=== PATIENT | female | born 1990 | race Caucasian/White ===

== ENCOUNTER 2021-06-19 10:41 | Emergency (ER) | payer BC ==
--- NOTE | 2021-06-19 12:50 | EDM.PDOC ---
ED HPI GENERAL MEDICAL PROBLEM - General Chief Complaint: Respiratory Problem Stated Complaint: COVID POS Time Seen by Provider: 06/19/21 10:44 Source of Information: Reports: Patient History Limitations: Reports: No Limitations - History of Present Illness INITIAL COMMENTS - FREE TEXT/NARRATIVE: 30-year-old female no past medical history presents with hypoxic home pulse oximeter reading last night in the setting of known Covid infection. Patient notes that she was diagnosed 9 days ago and has been symptomatic for 10 days. She is been following up with the [facility]. She was feeling much better a couple of days ago but yesterday noted return of body aches, fever, headaches, shortness of breath. Shortness of breath got worse at night when she was lying flat and she had an episode of her pulse oximeter reading 88%. This morning she woke up and it was 92%. She currently is feeling much better but wanted to rule out pneumonia. neck Pain Score (Numeric/FACES): 3 - Related Data Allergies Allergy/AdvReac Type Severity Reaction Status Date / Time Latex, Natural Rubber Allergy Rash Verified 06/19/21 12:16 Past Medical History Psychiatric History: Reports: Anxiety - Infectious Disease History Infectious Disease History: Reports: None Social & Family History - Family History Family Medical History: No Pertinent Family History - Tobacco Use Tobacco Use Status *Q: Current Some Day Tobacco User Years of Tobacco use: 10 Packs/Tins Daily: 1 - Recreational Drug Use Recreational Drug Use: No ED ROS GENERAL - Review of Systems Review Of Systems: Comprehensive ROS is negative, except as noted in HPI. ED EXAM, GENERAL - Physical Exam Exam: See Below Exam Limited By: No Limitations General Appearance: Alert, WD/WN, No Apparent Distress Ears: Hearing Grossly Normal Throat/Mouth: Normal Voice, No Airway Compromise Head: Atraumatic, Normocephalic Neck: Normal Inspection Respiratory/Chest: No Respiratory Distress, Lungs Clear, Normal Breath Sounds, No Accessory Muscle Use Cardiovascular: Normal Peripheral Pulses, Regular Rate, Rhythm Extremities: Normal Inspection Neurological: Alert, Normal Cognition, Normal Gait Psychiatric: Normal Affect, Normal Mood Skin Exam: Warm, Dry, Intact, Normal Color Course - Vital Signs Last Recorded V/S: Last Vital Signs Temp 97.6 F 06/19/21 12:11 Pulse 82 06/19/21 12:22 Resp 18 06/19/21 12:22 BP 127/68 06/19/21 12:22 Pulse Ox 98 06/19/21 12:22 - Re-Assessments/Exams Free Text/Narrative Re-Assessment/Exam: 06/19/21 12:50 We will get chest x-ray to rule out pneumonia. 06/19/21 13:32 Chest x-ray is unremarkable. Will discharge patient with PMD follow-up. Departure - Departure Time of Disposition: 13:33 Disposition: Home, Self-Care 01 Condition: Good Clinical Impression: COVID - Discharge Information Instructions: COVID-19: What to Do If You Are Sick- [facility] (12/01/2020) Referrals: Veda Conner, [employer] [Primary Care Provider] - Forms: ED Department Discharge Additional Instructions: Your chest x-ray does not reveal any evidence of pneumonia. Please continue monitoring her symptoms at home. The following information is given to patients seen in the emergency department who are being discharged to home. This information is to outline your options for follow-up care. We provide all patients seen in our emergency department with a follow-up referral. The need for follow-up, as well as the timing and circumstances, are variable depending upon the specifics of your emergency department visit. If you don't have a primary care physician on staff, we will provide you with a referral. We always advise you to contact your personal physician following an emergency department visit to inform them of the circumstance of the visit and for follow-up with them and/or the need for any referrals to a consulting specia list. The emergency department will also refer you to a specialist when appropriate. This referral assures that you have the opportunity for follow-up care with a specialist. All of these measure are taken in an effort to provide you with optimal care, which includes your follow-up. Under all circumstances we always encourage you to contact your private physician who remains a resource for coordinating your care. When calling for follow-up care, please make the office aware that this follow-up is from your recent emergency room visit. If for any reason you are refused follow-up, please contact the [facility] Emergency Department at and asked to speak to the emergency department charge nurse. Please follow up with your primary care physician. If you do not have a primary care physician, see below: [facility] [address], [place] [id number] [facility] [address] [place], [place] [id number] [facility] [place] [facility] [address] [place] [address] Sepsis Event Note (ED) - Evaluation Sepsis Screening Result: No Definite Risk - Focused Exam Vital Signs: Vital Signs Temp Pulse Resp BP Pulse Ox 06/19/21 12:22 82 18 127/68 98 06/19/21 12:11 97.6 F 75 18 132/70 99
--- NOTE | 2021-06-19 13:31 | CR ---
HISTORY: COVID-19 positive. TECHNIQUE: One view chest. COMPARISON: No prior. FINDINGS: No acute lung infiltrate or pulmonary edema. No pneumothorax or pleural effusion. Cardiac size and pulmonary vasculature within normal limits. No acute bony abnormality. IMPRESSION: No acute disease. Dictated by Dwight Rdz MD @ 06/19/2021 1:30:01 PM (Electronically Signed)
== END 2021-06-19 14:19 | disposition home or self-care (01) ==
LOC: MW.ED 10:41
DX: U07.1 COVID-19 (principal); F17.210 Nicotine dependence, cigarettes, uncomplicated; Z91.040 Latex allergy status
CPT/HCPCS: 71045; 71045-26; 99284-25

== ENCOUNTER 2021-11-24 09:44 | Day surgery (SDC) | payer BC ==
[~2021-11-24 09:44] MED LIST: Albuterol 0.083% 2.5 MG/3 ML Neb Soln NEB PRN; HYDROmorphone 1 MG/ML Syringe IVPUSH PRN; Lactated Ringers 1,000 ML IV SCH; Metoclopramide 10 MG/2 ML SDV IVPUSH PRN; Morphine 2 MG/ML SYRINGE IVPUSH PRN; Naloxone 0.4 MG/ML SDV IVPUSH PRN; Ondansetron 4 MG/2 ML SDV IVPUSH PRN; Sodium Chloride 0.9% 10 ML Syringe FLUSH PRN; Sodium Chloride 0.9% 2.5 ML Syringe FLUSH PRN; Sodium Chloride 0.9% 20 ML SDV IV PRN; ceFAZolin 2 GM in Premix Bag 1 BAG IV ONE; fentaNYL 100 MCG/2 ML SDV IVPUSH PRN
[2021-11-24] MEDS ORDERED: Propofol 200 MG/20 ML SDV ONE ×2 (09:57→10:00)
[2021-11-24] MEDS ORDERED: fentaNYL 100 MCG/2 ML SDV ONE ×3 (09:57→11:40)
[2021-11-24] MEDS ORDERED: Midazolam 1 MG/ML 2 ML SDV ONE (09:57)
[2021-11-24] MEDS ORDERED: Ketamine HCL/NACL, ISO-OSM 50 MG/5 ML Syringe ONE (09:57)
[2021-11-24] MEDS ORDERED: Octyl 2-Cyanoacrylate 1 Tube ONE (10:09)
[2021-11-24] MEDS ORDERED: Bupivacaine 0.5% 30 ML SDV ONE (10:09)
[2021-11-24] MEDS ORDERED: Scopolamine 1.5 MG Transdermal Patch ONE (10:19)
[2021-11-24] MEDS ORDERED: Scopolamine 1.5 MG Transdermal Patch TOP ONE (10:51)
[2021-11-24] MEDS ORDERED: fentaNYL 250 MCG/5 ML SDV ONE (11:06)
[2021-11-24] MEDS ORDERED: Acetaminophen/oxyCODONE 325-5 MG Tab PO PRN (12:08)
[2021-11-24] MEDS ORDERED: HYDROmorphone 2 MG/ML Syringe ONE (12:15)
[2021-11-24] MEDS ORDERED: Glycopyrrolate 0.2 MG/ML SDV ONE (12:29)
[2021-11-24] MEDS ORDERED: Sugammadex Sodium 200 MG/2 ML VIAL ONE (12:29)
[2021-11-24] MEDS ORDERED: Dexamethasone 4 MG/ML 5 ML MDV ONE (12:29)
[2021-11-24] MEDS ORDERED: Rocuronium Bromide 50 MG/5 ML Syringe ONE (12:29)
[2021-11-24] MEDS ORDERED: Ondansetron 4 MG/2 ML SDV ONE (12:29)
[2021-11-24] MEDS ORDERED: Ketorolac 30 MG/ML SDV ONE (12:29)
== END 2021-11-24 15:00 | disposition home or self-care (01) ==
LOC: MW.SDS 09:44
PROVIDERS: ATTEND Surgery
DX: K82.8 Other specified diseases of gallbladder (principal); F41.9 Anxiety disorder, unspecified; F32.A Depression, unspecified; E66.9 Obesity, unspecified; Z91.040 Latex allergy status; Z79.899 Other long term (current) drug therapy; Z98.890 Other specified postprocedural states; Z87.891 Personal history of nicotine dependence
CPT/HCPCS: 00790; 81025; A9270-GY; J0131; J0690; J1100; J1170; J1885; J2250; J2405; J2704; J3010; J3490; J7030; J7120

== ENCOUNTER 2024-02-01 13:06 | Emergency (ER) | payer BC | END 2024-02-01 14:28 | disposition home or self-care (01) | LOC: MW.ED 13:06 | DX: L29.9 Pruritus, unspecified (principal); Z75.8 Other problems related to medical facilities and other health care; Z91.040 Latex allergy status | CPT/HCPCS: 99283 ==

== ENCOUNTER 2024-11-08 13:26 | Emergency (ER) | payer BC ==
[2024-11-08] MEDS: Acetaminophen 500 MG Tab PO STA (15:40)
== END 2024-11-08 17:09 | disposition home or self-care (01) ==
LOC: MW.ED 13:26
DX: S92.502A Displaced unspecified fracture of left lesser toe(s), initial encounter for closed fracture (principal); E66.9 Obesity, unspecified; Z75.8 Other problems related to medical facilities and other health care; Z91.040 Latex allergy status; Z79.899 Other long term (current) drug therapy; Z68.32 Body mass index [BMI] 32.0-32.9, adult; W23.0XXA Caught, crushed, jammed, or pinched between moving objects, initial encounter
CPT/HCPCS: 73630; 99283; A9270